=== PATIENT | male | born 1940 | race Caucasian/White ===

== ENCOUNTER → 2018-10-03 | Outpatient (CLI) | payer MEDICARE, OTHER ==
[2018-08-02 15:07] VITALS: BP 154/74
[~2018-10-03] MED LIST: ACET500T68 PO; ASPI81TA59 PO; LEVE500T56 PO; LEVO100T5 PO; MULT1TAB52 PO; NITR0.4T22 SL; OMEG1CAP6 PO; TRAZ-86 PO
[2018-10-03 09:28] LABS: CHOLESTEROL/HDL RATIO 2.6
--- NOTE | 2018-10-08 19:02 | EEG ---
DATE OF SERVICE: 10/03/2018 EEG NUMBER: [id number]. OBJECTIVE: This is a 78-year-old male patient with history of seizure or seizure-like episodes. EEG was requested to evaluate cerebral activity. METHODS: Twenty electrodes were applied with international 10-20 electrode placement system. EKG monitoring, hyperventilation, intermittent photic stimulation, monopolar and bipolar montages are routinely utilized. The record was obtained on a digital system with video monitoring. FINDINGS: 1. Background: The patient was recorded in the awake and drowsy states. No actual sleep state was recorded. The overall background amplitude is 10-20 microvolts. A posterior dominant rhythm of 8-9 Hz is observed. 2. Abnormalities: No specific epileptiform discharge or electrographic seizure is seen. No focal or diffuse slowing. 3. Activation: Hyperventilation was performed with fair efforts and normal response. Intermittent photic stimulation was performed with photic driving. No specific epileptiform discharge or electrographic seizure induced by hyperventilation or intermittent photic stimulation. IMPRESSION: This EEG is a normal study for the awake and drowsy states. No actual sleep state was recorded. No focal, lateralizing, specific epileptiform discharge or electrographic seizure is seen. AME CARRERA MD DR: BRENDON/lillie JOB#: [id number] / [id number] [place]
== END | disposition home or self-care (01) ==
LOC: RT 08:30
PROVIDERS: ATTEND Psychiatry & Neurology Neurology
DX: G93.41 Metabolic encephalopathy (principal); E78.5 Hyperlipidemia, unspecified
CPT/HCPCS: 36415; 80061; 82947; 95816